=== PATIENT | female | born 1995 | race Caucasian/White ===

== ENCOUNTER 2023-10-24 06:19 | Day surgery (SDC) | payer OTHER, SELFPAY ==
[2023-10-10 15:23] VITALS: BMI 22.8
--- NOTE | 2023-10-24 | PATH_ITS ---
[facility] Accession Number: [id number] No. of containers..01 Tissue . 01 Material submitted: . flank - RIGHT FLANK LIPOMA . 01 Diagnosis: RIGHT FLANK, EXCISION: Mature fibroadipose tissue, consistent with lipoma. FRR 10/30/2023 1550 Local . 01 Electronically signed: . Marcel Adams MD, Dermatopathologist NPI- [id number] . 01 Gross description: . RIGHT FLANK LIPOMA: Received in formalin is 1 fragment of munguia soft tissue measuring 5.5 x 3.5 x 2.0 cm. Tissue is inked. Specimen is sectioned and submitted in new accounts representative sections in 2 cassettes. /VLAD 10/25/2023 2258 Local . 01 Pathologist provided ICD-10: D17.1 . 01 CPT . 588950 Specimen Comment: A courtesy copy of this report has been sent to [phone] Performed at: 01 [facility] [address] [place] [address], [place], [place] [id number] MD Vj Carlos MD Phone: [phone]
[2023-10-24 06:47] VITALS: BP 130/80; PULSE 73; RESP 20; TEMP 36.9; O2SAT 100; BMI 21.9
[2023-10-24] MEDS: LACTATED RINGERS 1,000 ML 42 ML IV (06:52)
--- NOTE | 2023-10-24 07:36 | P.HP_ITS ---
History of Present Illness History of Present Illness Date Patient Seen: 10/24/23 Time Patient Seen: 07:36 Chief complaint: SD Narrative: Kelly is a 28-year-old woman who presents with a right flank lipoma a bothers her because it was at the bra line. See office note from August for details. [facility] Medical History Sleep apnea (~1999) Hip discomfort (~2022) Lipoma (~2013) Surgical History History of wisdom tooth extraction (~08/2020) Family History Grandmother Breast cancer Social History marital status: unmarried,single household members: significant other occupational status: employed ([employer]) Smoking Status: Never smoker alcohol intake: current Meds Home Medications and Allergies Home Medications Medication Instructions Recorded Confirmed Type desogestrel-e.estradiol 0.15 1 tab PO DAILY 08/22/23 10/24/23 History mg-0.02 mg(21)/e.estrad 0.01 mg(5) tablet (Joel (28)) Allergies Allergy/AdvReac Type Severity Reaction Status Date / Time No Known Drug Allergies Allergy Verified 10/24/23 06:43 Exam Vital Signs (past 8 hours): - 10/24/23 06:47 Temperature 98.4 F Pulse Rate 73 Respiratory Rate 20 Blood Pressure 130/80 Pulse Oximetry 100 Oxygen Delivery Method Room Air Oxygen Delivery Method Room Air Narrative Exam Narrative: 5-6 cm right flank lipoma Assessment & Plan Assessment and plan (1) Lipoma of chest wall: Status: Acute Plan We will proceed with wide local excision of the right flank lipoma in the operating room. The patient can be in a semi-lateral position.
[2023-10-24] MEDS: ACETAMINOPHEN IV 1,000 MG/100 ML VIAL 400 MG IV (07:45)
--- NOTE | 2023-10-24 08:04 | SUR.OPER ---
Lazy Lateral, supported by blankets, head on pillow, gel axillary roll in place, bottom leg bent with gel pad under knee to foot, upper leg straight and supported with pillows. Upper arm supported by pillows and secured over bottom arm to padded arm board. Safety belt at hip, tape over blanket lower legs.
[2023-10-24] MEDS: BUPIVACAINE 0.25% (PF) 30 ML, EPINEPHrine 0.15 MG INJ (08:08)
--- NOTE | 2023-10-24 08:19 | P.OP_ITS ---
Operative Date/Time/Diagnoses Date of procedure: 10/24/23 Time of procedure: 08:19 Pre-op diagnosis: Right flank lipoma Post-op diagnosis: same Procedure & Clinicians Procedure: Excisional biopsy of right flank lipoma Same procedure as scheduled: Yes Surgeon: Wes Carter Train Caller: Jag Bennett Anesthesia Type: General Operative Notes Procedure in detail: The patient was brought to the operating room and general anesthesia was induced . She was positioned in a semi-lateral position. The right flank was prepped and draped in the usual fashion and a time-out was performed. Local was injected over the mass. A 6 cm transverse incision was created over the mass. The mass appeared to be a lipoma and was dissected free from the surrounding tissue. Additional local was injected into the deep tissue which was overlying the serratus muscle fascia. The mass was excised en bloc and sent in formalin. The wound was then closed in layers using multiple interrupted 3-0 Vicryl dermal sutures and a running 4-0 Monocryl subcuticular stitch. EBL: 5 mL Specimen: Right flank lipoma Jag NAPIER provided assistance with exposure, retraction and closure of incisions. Post-operative Condition: stable Disposition: PACU
[2023-10-24 08:28] VITALS: BP 112/54; PULSE 99; RESP 14; TEMP 36.6; O2SAT 99
[2023-10-24 08:33] VITALS: BP 115/66; PULSE 78; RESP 14; O2SAT 94
[2023-10-24 08:38] VITALS: BP 119/62; PULSE 79; RESP 16; O2SAT 100
[2023-10-24 08:42] VITALS: BP 119/61; PULSE 71; RESP 16; TEMP 36.6; O2SAT 100
[2023-10-24 08:49] VITALS: BP 118/66; PULSE 60; RESP 14; TEMP 36.6; O2SAT 99
== END 2023-10-24 09:05 | disposition home or self-care (01) ==
PROVIDERS: PCP Family Medicine; Referring Provider Surgery; Visit Provider Surgery
PROC: (CPT 21931; principal; 2023-10-24 07:45)
DX: D17.1 Benign lipomatous neoplasm of skin and subcutaneous tissue of trunk (principal)
CPT/HCPCS: 21931; 81025; J0136; J0171; J1100; J2250; J2405; J2704; J3010